=== PATIENT | male | born 1950 | race Caucasian/White ===

== ENCOUNTER 2021-07-18 12:15 | Outpatient (CLI) | payer OTHER, SELFPAY ==
[2021-07-18 12:53] LABS: CRP 0.7 mg/dL (<1.0)
[2021-07-18 13:56] LABS: Erythrocyte Sedimentation Rate 18 mm/hr (0-20)
== END 2021-07-18 12:16 | disposition home or self-care (01) ==
LOC: ANHLAB 12:20
PROVIDERS: PCP Internal Medicine; Visit Provider Orthopaedic Surgery
DX: Z96.651 Presence of right artificial knee joint (principal)
CPT/HCPCS: 36415; 85652; 86140

== ENCOUNTER 2021-07-18 12:35 | Outpatient (NON) | payer OTHER, SELFPAY ==
[2021-07-18 13:47] LABS: Color Synovial Fluid Yellow (Colorless); Crystals Synovial Fluid None Seen (None Seen); Source Synovial Fluid Synovial fluid
[2021-07-18 13:48] LABS: Appearance Synovial Fluid Hazy (Clear); Nucleated Cell Synovial Fluid 2992 /uL (0-200); RBC Synovial Fluid 165 /uL (0-0)
[2021-07-18 13:52] LABS: Lymphocytes Synovial Fluid 55 %; Neutrophils Synovial Fluid 45 % (0-25)
== END 2021-07-18 12:36 | disposition home or self-care (01) ==
LOC: HOME HLTH 12:37
PROVIDERS: PCP Internal Medicine; Visit Provider Orthopaedic Surgery
DX: Z96.651 Presence of right artificial knee joint (principal)
CPT/HCPCS: 36415; 85652; 86140; 87070; 87075; 87205; 89051; 89060

== ENCOUNTER 2021-08-21 01:02 | Day surgery (SDC) | payer OTHER, SELFPAY ==
[2021-08-07 14:07] VITALS: BMI 39.4
[2021-08-21 07:09] VITALS: BP 129/76; PULSE 88; RESP 17; TEMP 35.9; O2SAT 96; BMI 38.6
[2021-08-21] MEDS: LACTATED RINGERS 1,000 ML 150 ML IV CONT (07:21)
[2021-08-21 07:22] LABS: Glucose Point of Care 163 mg/dl (65-105)
--- NOTE | 2021-08-21 07:24 | WPDANESEPPF ---
Anes - Initial Pre Proc Eval Procedure: Operation Date: 08/21/21 08:30 Proposed Procedures p Screening Colonoscopy - Jordan Chan MD Date/Time: 08/21/21 07:24 Surgeon: Jordan Chan MD Pre Op Diagnosis: hx of colon polyps Patient Data Age: 71 Gender: M Height: 1.91 m Weight: 140.1 kg Last Vital Signs Temp 35.9 C L 08/21/21 07:09 Pulse 88 08/21/21 07:09 Resp 17 08/21/21 07:09 BP 129/76 08/21/21 07:09 Pulse Ox 96 08/21/21 07:09 Allergies Allergy/AdvReac Type Severity Reaction Status Date / Time No Known Allergies Allergy Verified 08/21/21 07:07 Home Medications Medication Instructions Recorded Confirmed Type lancets 23 gauge #25 each 04/06/19 08/21/21 History sildenafil 100 mg tablet 100 mg PO DAILY PRN 04/06/19 08/21/21 History triamcinolone acetonide 0.1 % 1 applic TOPICAL BID 04/06/19 08/21/21 History topical cream albuterol sulfate 90 mcg/actuation 1 puff INHALATION Q4H PRN #18 gm 12/18/19 08/21/21 Rx aerosol inhaler amlodipine 10 mg tablet 10 mg PO DAILY #90 tablet 10/10/20 08/21/21 Rx lisinopril 20 mg tablet 20 mg PO DAILY #90 tablet 01/23/21 08/21/21 Rx lovastatin 20 mg tablet 20 mg PO DAILY #90 tablet 02/07/21 08/21/21 Rx montelukast 10 mg tablet 10 mg PO DAILY #90 tablet 02/07/21 08/21/21 Rx meloxicam 15 mg tablet 15 mg PO DAILY #90 tablet 04/05/21 08/21/21 Rx citalopram 40 mg tablet 20 mg PO DAILY #90 tablet 05/01/21 08/21/21 Rx metformin 1,000 mg tablet 1,000 mg PO BID #180 tablet 05/13/21 08/21/21 Rx fluticasone 250 mcg-salmeterol 50 1 inh INHALATION BID #180 each 05/30/21 08/21/21 Rx mcg/dose blistr powdr for inhalation allopurinol 100 mg tablet 200 mg PO BID #180 tablet 06/25/21 08/21/21 Rx blood sugar diagnostic #100 ea 08/19/21 08/21/21 Rx Laboratory Tests 08/21/21 07:13 POC Capillary Glucose 163 mg/dl H mg/dl (65-105) Patient hx anesthesia problems: none Family hx anesthesia problems: none Results Review: All pre-operative results and documents have been reviewed as part of the pre-operative evaluation. [facility] Past Medical History Medical History (Updated 08/21/21 @ 07:26 by Anatoly Frost MD) COPD (chronic obstructive pulmonary disease) Diabetes Essential (primary) hypertension Hyperlipidemia LDL goal <100 Mild intermittent asthma, uncomplicated Obstructive sleep apnea (adult) (pediatric) Prostate cancer screening Type 2 diabetes mellitus without complication, without long-term current use of insulin Family History Family History Other Family history of arthritis Family history of gout Family history of malignant neoplasm Hypertension Social History Social History Smoking packs per day: 1 Smoking cigarettes per day: 20.0 Smoking status: Former smoker Tobacco type: cigarettes Second hand tobacco smoke exposure: No Smoking end date: 04/26/99 Alcohol intake: current Drinks per week: 1 Alcohol use details: beer, Substance use: never Substance use type: does not use Living arrangements: with family Spiritual care concerns: No Anes - Eval Final PreProcedure Day of Procedure 08/21/21 07:24 Patient weight: obese Heart: regular rate and rhythm Lungs: clear to auscultation and normal air movement Airway: Mallampati scale class II Neurological: alert and oriented Last oral intake: >/= 8 hours ASA classification: III Emergent: no Anesthetic plan: proceed Anesthesia type and monitoring: general GIVS Results Review: All pre-operative results and documents have been reviewed as part of the pre-operative evaluation. Informed Consent: The patient's anesthetic plan and its attendant risks and benefits were discussed with the patient/family/POA. Questions were solicited and answers provided to the satisfaction of the patient/family/POA.
--- NOTE | 2021-08-21 07:29 | PM.HPGS ---
History of Present Illness History of Present Illness Consent: Risks, benefits, and alternatives have been discussed and questions answered. Patient agrees to proceed with procedure. Chief complaint: hx of colon polyps Narrative: Edgar Lockhart is a 71 year old male Referred for colon cancer screening. He has history of polyps, having had 3 polyps removed about 5 years ago. Review of Systems Review of Systems: All systems reviewed & are unremarkable except as noted in HPI and below PMFSH Past Medical History Medical History COPD (chronic obstructive pulmonary disease) Diabetes Essential (primary) hypertension Hyperlipidemia LDL goal <100 Mild intermittent asthma, uncomplicated Obstructive sleep apnea (adult) (pediatric) Prostate cancer screening Type 2 diabetes mellitus without complication, without long-term current use of insulin Family History Family History Other Family history of arthritis Family history of gout Family history of malignant neoplasm Hypertension Social History Social History Smoking packs per day: 1 Smoking cigarettes per day: 20.0 Smoking status: Former smoker Tobacco type: cigarettes Second hand tobacco smoke exposure: No Smoking end date: 04/26/99 Alcohol intake: current Drinks per week: 1 Alcohol use details: beer, Substance use: never Substance use type: does not use Living arrangements: with family Spiritual care concerns: No Meds Home Medications and Allergies Home Medications Medication Instructions Recorded Confirmed Type lancets 23 gauge #25 each 04/06/19 08/21/21 History sildenafil 100 mg tablet 100 mg PO DAILY PRN 04/06/19 08/21/21 History triamcinolone acetonide 0.1 % 1 applic TOPICAL BID 04/06/19 08/21/21 History topical cream albuterol sulfate 90 mcg/actuation 1 puff INHALATION Q4H PRN #18 gm 12/18/19 08/21/21 Rx aerosol inhaler amlodipine 10 mg tablet 10 mg PO DAILY #90 tablet 10/10/20 08/21/21 Rx lisinopril 20 mg tablet 20 mg PO DAILY #90 tablet 01/23/21 08/21/21 Rx lovastatin 20 mg tablet 20 mg PO DAILY #90 tablet 02/07/21 08/21/21 Rx montelukast 10 mg tablet 10 mg PO DAILY #90 tablet 02/07/21 08/21/21 Rx meloxicam 15 mg tablet 15 mg PO DAILY #90 tablet 04/05/21 08/21/21 Rx citalopram 40 mg tablet 20 mg PO DAILY #90 tablet 05/01/21 08/21/21 Rx metformin 1,000 mg tablet 1,000 mg PO BID #180 tablet 05/13/21 08/21/21 Rx fluticasone 250 mcg-salmeterol 50 1 inh INHALATION BID #180 each 05/30/21 08/21/21 Rx mcg/dose blistr powdr for inhalation allopurinol 100 mg tablet 200 mg PO BID #180 tablet 06/25/21 08/21/21 Rx blood sugar diagnostic #100 ea 08/19/21 08/21/21 Rx Allergies Allergy/AdvReac Type Severity Reaction Status Date / Time No Known Allergies Allergy Verified 08/21/21 07:07 Vital Signs Vital Signs - 24 hr 08/21/21 07:09 Temperature 35.9 C L Pulse Rate 88 Respiratory Rate 17 Blood Pressure 129/76 Pulse Oximetry 96 Exam Resp: Auscultation: clear to auscultation bilaterally Cardio: Rate: regular rate Rhythm: regular rhythm GI: GI Palp: Yes Soft to palpation and No Tenderness to palpation present (GI) Assessment and Plan Assessment and plan (1) Colon cancer screening: Code(s): Z12.11 - Encounter for screening for malignant neoplasm of colon Status: Acute Assessment and Plan: Colonoscopy with possible biopsy or polypectomy or cautery or injection of substances.
[2021-08-21 08:46] VITALS: BP 90/62; PULSE 78; RESP 15; O2SAT 93
[2021-08-21 08:56] VITALS: BP 108/70; PULSE 74; RESP 16; O2SAT 96
[2021-08-21 09:06] VITALS: BP 110/76; PULSE 66; RESP 17; O2SAT 97
== END 2021-08-21 09:14 | disposition home or self-care (01) ==
PROVIDERS: PCP Family Medicine; Visit Provider Internal Medicine Gastroenterology
PROC: 0DJD8ZZ Inspection of Lower Intestinal Tract, Via Natural or Artificial Opening Endoscopic (ICD-10-PCS; CPT 45378; principal; 2021-08-21 08:30)
DX: Z12.11 Encounter for screening for malignant neoplasm of colon (principal); D12.3 Benign neoplasm of transverse colon; K63.5 Polyp of colon; K57.30 Diverticulosis of large intestine without perforation or abscess without bleeding; J44.9 Chronic obstructive pulmonary disease, unspecified; E11.9 Type 2 diabetes mellitus without complications; I10 Essential (primary) hypertension; E78.5 Hyperlipidemia, unspecified; J45.20 Mild intermittent asthma, uncomplicated; G47.33 Obstructive sleep apnea (adult) (pediatric); Z87.891 Personal history of nicotine dependence; Z79.51 Long term (current) use of inhaled steroids; Z79.84 Long term (current) use of oral hypoglycemic drugs; E66.9 Obesity, unspecified; Z68.38 Body mass index [BMI] 38.0-38.9, adult
CPT/HCPCS: 45380; 82948; 88305; J2704; J7120

== ENCOUNTER 2022-10-20 09:46 | Outpatient (CLI) | payer OTHER, SELFPAY ==
[2022-10-20 16:59] LABS: Basophils Absolute Auto 0.1 K/mm3 (0.0-0.1); Basophils Percent Auto 0.6 % (0.2-1.2); Eosinophils Absolute Auto 0.1 K/mm3 (0-0.3); Eosinophils Percent Auto 1.1 % (0-4.4); Hematocrit 41.1 % (42.0-52.0); Hemoglobin 13.3 g/dL (14.0-18.0); Immature Granulocyte Absolute 0.08 K/mm3 (0.00-0.031); Immature Granulocyte Percent A 0.7 % (0-0.5); Lymphocytes Absolute Auto 0.86 K/mm3 (0.9-3.2); Lymphocytes Percent Auto 7.9 % (18.3-44.2); Mean Corpuscular HGB Conc 32.4 g/dl (32-36); Mean Corpuscular Hemoglobin 30.2 pg (26-34); Mean Corpuscular Volume 93.2 fl (80-100); Mean Platelet Volume 9.2 fl (7.4-10.4); Monocytes Percent Auto 8.8 % (2.6-8.5); Neutrophils Absolute Auto 8.8 K/mm3 (1.3-6.7); Neutrophils Percent Auto 80.9 % (45.5-73.1); Platelet Count Result 361 k/mm3 (150-375); Red Blood Count 4.41 M/mm3 (4.6-6.20); Red Cell Distribution Width 15.3 % (11.5-14.5); White Blood Count 10.9 K/mm3 (4.5-10.0)
[2022-10-20 17:21] LABS: Creatinine Urine 276.9 mg/dL
[2022-10-20 17:23] LABS: MALB Creatinine Ratio 16.7 mg/g (0-30); Microalbumin Urine Random 46.2 mg/L (0-16.7)
[2022-10-20 17:35] LABS: D Dimer < 0.27 ug/mL (<0.48)
[2022-10-20 18:17] LABS: Prostate Specific Antigen < 0.1 ng/mL (< OR = 4.0)
[2022-10-20 18:49] LABS: Alanine Aminotransferase 31 U/L (6-50); Albumin Level 4.5 g/dL (3.5-5.1); Alkaline Phosphatase 101 U/L (38-126); Anion Gap 6 mmol/L (8-16); Aspartate Amino Transferase 31 U/L (17-59); Bilirubin,Total 0.6 mg/dL (0.2-1.3); Blood Urea Nitrogen 25 mg/dL (9-20); Carbon Dioxide 26 mmol/L (22-30); Chloride 107 mmol/L (98-107); Cholesterol 191 mg/dL (0-200); Estimated Glomerular Filt Rate 54; Glucose 105 mg/dL (65-110); HDL Direct 35 mg/dL; Potassium 4.7 mmol/L (3.4-5.0); Sodium 139 mmol/L (137-145); Triglycerides 277 mg/dL (<150)
[2022-10-20 19:00] LABS: LDL Cholesterol Direct 102 mg/dL
[2022-10-20 20:43] LABS: Hemoglobin A1C 6.1 % (<5.7)
== END 2022-10-20 09:47 | disposition home or self-care (01) ==
LOC: ANHGOSHLAB 09:47
PROVIDERS: Internal Medicine; PCP Family Medicine; Visit Provider Family Medicine
DX: Z12.5 Encounter for screening for malignant neoplasm of prostate (principal); J44.9 Chronic obstructive pulmonary disease, unspecified; Z13.220 Encounter for screening for lipoid disorders; R06.02 Shortness of breath; Z13.228 Encounter for screening for other metabolic disorders; E11.9 Type 2 diabetes mellitus without complications; R53.83 Other fatigue
CPT/HCPCS: 36415; 80053; 80061; 82043; 83036; 84153; 85025; 85380; G0103

== ENCOUNTER → 2022-10-20 10:07 | Outpatient (CLI) | payer OTHER, SELFPAY ==
--- NOTE | ~2022-10-20 | XR_ITS ---
Clinical Indication: Shortness of breath PA and lateral views of the chest: Comparison: 12/31/2006 Findings: The lungs are clear, without evidence of focal consolidation or pleural effusion. Cardiome diastinal silhouette is within normal limits. Calcified right hilar lymph nodes are present. Eventrat ion of the right hemidiaphragm noted. Bones and soft tissues are unremarkable. Impression: Clear lungs. No acute abnormality seen. Reviewed, dictated and finalized at location M. Impression: Clear lungs. No acute abnormality seen.
== END ==
PROVIDERS: PCP Family Medicine; Visit Provider Family Medicine
DX: J39.8 Other specified diseases of upper respiratory tract (principal); J44.9 Chronic obstructive pulmonary disease, unspecified
CPT/HCPCS: 71046

== ENCOUNTER 2022-11-21 07:45 | Outpatient (CLI) | payer OTHER, SELFPAY ==
--- NOTE | 2022-11-21 08:04 | ECHO_ITS ---
Patient Info Name: Edgar Lockhart Age: 72 years : 1950 Gender: Male Ht: 72 in Wt: 320 lbs BSA: 2.78 m2 HR: 73 bpm Heart Rhythm: Sinus Rhythm Technical Quality: Good Exam Date: 11/21/2022 8:17 AM Exam Location: [facility] Patient Status: Outpatient Admit Date: 11/21/2022 Staff Ordering Physician: Reuben Simpson DO Grocery Caddy: Nino Platt RDCS Attending Provider: Reuben Simpson DO Referring Physician: Calvin INIGUEZ; Exam Type: CA echo doppler color flow Study Info Indications - other forms of dyspnea Complete two-dimensional, color flow and Doppler transthoracic echocardiogram is performed. Summary 1. Complete two-dimensional, color flow and Doppler transthoracic echocardiogram is performed. 2. Left ventricular chamber dimension is mildly enlarged. 3. There is mild concentric increased left ventricular wall thickness. 4. Left ventricular systolic function is normal, estimated at 60-65%. 5. The left ventricular diastolic function is abnormal. 6. E/e' 15 is elevated. 7. There is mild aortic valve sclerosis. 8. There is mild tricuspid valve regurgitation. 9. No pulmonary hypertension, estimated pulmonary arterial systolic pressure is 30 mmHg. Left Ventricle E/e' 15 is elevated. Left ventricular chamber dimension is mildly enlarged. Left ventricular systolic function is normal, estimated at 60-65%. There is mild concentric increased left ventricular wall thickness. The left ventricular diastolic function is abnormal. Right Ventricle Right ventricular systolic function is normal and with normal TAPSE 1.7 cm. Right ventricular chamber dimension is normal. Left Atria Left atrial chamber dimension is normal. Right Atria Right atrial chamber dimension is normal. Aortic Valve The aortic valve is trileaflet. There is mild aortic valve sclerosis. There is no aortic valve stenosis. There is no aortic valve regurgitation. Pulmonic Valve There is no pulmonic regurgitation. Mitral Valve There is no mitral valve stenosis. There is no mitral valve regurgitation. Tricuspid Valve There is mild tricuspid valve regurgitation. No pulmonary hypertension, estimated pulmonary arterial systolic pressure is 30 mmHg. Pericardium/Pleural There is no pericardial effusion. Inferior Vena Cava Normal inferior vena cava with >50% collapse upon inspiration consistent with normal right atrial pressure, 5 mmHg. Aorta The aortic root size at the sinus of Valsalva is normal. Left Ventricular Outflow Tract Name Value Normal LVOT 2D LVOT Diameter 2.2 cm LVOT Doppler LVOT Peak Gradient 6 mmHg LVOT Mean Gradient 4 mmHg LVOT VTI 24 cm LVOT VTI/AV VTI Ratio 0.7 LVOT Stroke Volume 92 ml LVOT CO 6.8 l/min LVOT CI 2.4 l/min/m2 Pulmonic Valve Name Value Normal RVOT Doppler
--- NOTE | 2022-11-21 08:28 | ECG_ITS ---
Measurements Intervals Wheeler Rate: 71 P: 48 CO: 189 QRS: 96 QRSD: 109 T: 60 QT: 396 QTc: 431 Interpretive Statements SINUS RHYTHM BASELINE ARTIFACT- I, II, III, AVR, AVL, AVF, V1-V6 NORMAL ECG NO PREVIOUS ECG AVAILABLE FOR COMPARISON Electronically Signed On 11-21-2022 8:53:42 CDT by Shayan Wells D.O.
== END 2022-11-21 07:46 | disposition home or self-care (01) ==
LOC: ANHCARD 07:46
PROVIDERS: PCP Family Medicine; Visit Provider Family Medicine
DX: R06.00 Dyspnea, unspecified (principal); R06.09 Other forms of dyspnea
CPT/HCPCS: 93005; 93306

== ENCOUNTER 2023-12-27 10:49 | Emergency (ER) | payer OTHER, SELFPAY ==
--- NOTE | 2023-12-27 11:02 | ED.ABDPAIN ---
HPI - Abdominal Pain General Chief Complaint: Abdominal Pain Stated Complaint: lower belly/ crotch pain Time Seen by Provider: 12/27/23 11:02 Source: patient, RN notes reviewed and old records reviewed Mode of arrival: ambulatory Limitations: no limitations History of Present Illness HPI narrative: Patient presents with complaints of intermittent abdominal discomfort for 2-3 weeks. He reports pain is worse when he is getting up from lying down, he has also noticed a bulge in the umbilical area when he goes from lying to sitting. Reports bulge goes away when standing up. He denies any injury or trauma. He denies fever, chills, sweats. He denies any change in bowel pattern. He denies any fever, chills, sweats. No nausea or vomiting. Related Data Home Medications Medication Instructions Recorded Confirmed lancets 23 gauge #25 ea 04/06/19 06/21/23 triamcinolone acetonide 0.1 % 1 applic topical BID 04/06/19 06/21/23 topical cream Allergies Allergy/AdvReac Type Severity Reaction Status Date / Time No Known Allergies Allergy Verified 12/27/23 11:04 Review of Systems Review of Systems: All systems reviewed & are unremarkable except as noted in HPI and below Constitutional: Constitutional: Reports no additional constitutional complaints ENT: Reports system reviewed and no additional complaints, except as documented Cardiovascular: Cardiovascular: Reports no additional cardiovascular complaints Respiratory: Respiratory: Reports no additional respiratory complaints Gastrointestinal: Gastrointestinal: Reports as per HPI, Reports no additional gastrointestinal complaints, Denies melena, Denies bloating, Denies change in stool character, Denies constipation, Denies GI cramping and Reports other (Abdominal discomfort when going from sitting to standing, umbilical bulge) Genitourinary: Genitourinary: Reports no additional male genitourinary complaints, Reports as per HPI and Denies dysuria PMF Past Medical History Medical History COPD (chronic obstructive pulmonary disease) Diabetes Essential (primary) hypertension Hyperlipidemia LDL goal <100 Mild intermittent asthma, uncomplicated Obstructive sleep apnea (adult) (pediatric) Prostate cancer screening Type 2 diabetes mellitus without complication, without long-term current use of insulin Surgical History Surgical History History of total left knee replacement (TKR) (04/13/23) Family History Family History Other Family history of arthritis Family history of gout Family history of malignant neoplasm Hypertension Social History Social History Smoking packs per day: 1 Smoking cigarettes per day: 20.0 Smoking status: Former smoker Tobacco type: cigarettes Second hand tobacco smoke exposure: No Smoking end date: 04/26/99 Alcohol intake: current Drinks per week: 1 Alcohol use details: beer, Substance use: never Substance use type: does not use Lack of Transportation: No Lack of Food: Never True Current Housing: I Have Housing Concerned About Future Housing: No Difficulty Paying Gas/Electric Bills: No Difficulty Paying for Meds: No Currently Unemployed: No Education: Associate Degree Difficulty w/ Childcare or Family Care: No Living arrangements: with family Spiritual care concerns: No Comments At the time of my signature, I reviewed and agree with the nursing past medical, surgical, social, and family history. There is no relevant family history pertinent to the patient complaint. Exam Const: General: cooperative, no acute distress, alert and awake Orientation/consciousness: oriented to person, oriented to place and oriented to time HENMT: Head: normal to inspection Resp: Effort &
== END 2023-12-27 11:22 | disposition home or self-care (01) ==
PROVIDERS: Emergency Provider Nurse Practitioner Family; PCP Family Medicine
DX: K42.9 Umbilical hernia without obstruction or gangrene (principal); Z87.891 Personal history of nicotine dependence; J44.9 Chronic obstructive pulmonary disease, unspecified; E11.9 Type 2 diabetes mellitus without complications; I10 Essential (primary) hypertension; E78.5 Hyperlipidemia, unspecified
CPT/HCPCS: 99211; G0463

== ENCOUNTER 2024-01-12 09:56 | Outpatient (CLI) | payer OTHER, SELFPAY ==
--- NOTE | ~2024-01-12 | CT_ITS ---
EXAMINATION: CT abdomen pelvis w con DATE: 01/12/2024 10:30 INDICATION: Unspecified abdominal pain. TECHNIQUE: Computed tomography (CT) of the abdomen and pelvis was performed with 100 mL Omnipaque 350 intravenous contrast. Automated exposure control and iterative reconstruction technique were employe d. The dose-length product was 2047.00 mGy-cm. COMPARISON: Chest 2 views 10/20/22 FINDINGS: The lungs demonstrate mild atelectasis. There is chronic elevation of right hemidiaphragm. No pleural effusion. Calcified right hilar mediastinal lymph nodes are consistent with old granulomat ous disease. The heart size is normal. There are coronary artery calcifications. No pericardial effus ion. Calcifications in the liver and spleen are consistent with old granulomatous disease. There are gallstones in the gallbladder, which is normal in size. The pancreas and left adrenal gland are vanessa l. There is a 2.4 cm mass in right adrenal gland measuring soft tissue attenuation. Right kidney is n ormal. There are 2 stones in left kidney measuring up to 9 mm. There are brachytherapy seeds in the p rostate. The prostate is mildly enlarged. There is diverticulosis of the colon without evidence of di verticulitis. The appendix is normal. There are no dilated loops of bowel. There are no pathologicall y enlarged lymph nodes. There is no free intraperitoneal fluid. There is thoracolumbar dextroscoliosi s and severe spondylosis. IMPRESSION: 1. Cholelithiasis. 2. Nonobstructing left kidney stones. 3. 2.4 cm right adrenal mass. In the absence of known malignancy other than prostate cancer, this fin ding is likely an adenoma. Reviewed, dictated and finalized at location A. IMPRESSION: 1. Cholelithiasis. 2. Nonobstructing left kidney stones. 3. 2.4 cm right adrenal mass. In the absence of known malignancy other than pro state cancer, this finding is likely an adenoma.
[2024-01-12 10:23] LABS: Estimated Glomerular Filt Rate 50
== END 2024-01-12 09:57 | disposition home or self-care (01) ==
PROVIDERS: PCP Family Medicine; Visit Provider Family Medicine
DX: K80.20 Calculus of gallbladder without cholecystitis without obstruction (principal); N20.0 Calculus of kidney; D35.01 Benign neoplasm of right adrenal gland
CPT/HCPCS: 74177; Q9967

== ENCOUNTER 2025-03-13 11:33 | Outpatient (CLI) | payer OTHER, SELFPAY ==
[2025-03-13 13:21] LABS: Anion Gap 8 mmol/L (4-12); Blood Urea Nitrogen 19 mg/dL (9-20); Calcium 10.1 mg/dL (8.4-10.2); Carbon Dioxide 26 mmol/L (22-30); Chloride 107 mmol/L (98-107); Estimated Glomerular Filt Rate > 60; Glucose 107 mg/dL (65-110); Potassium 4.5 mmol/L (3.4-5.0); Sodium 141 mmol/L (137-145)
[2025-03-13 17:06] LABS: Hemoglobin A1C 6.2 % (<5.7)
== END 2025-03-13 11:34 | disposition home or self-care (01) ==
LOC: ANHGOSHLAB 11:34
PROVIDERS: PCP Internal Medicine; Visit Provider Internal Medicine
DX: E11.9 Type 2 diabetes mellitus without complications (principal); I10 Essential (primary) hypertension
CPT/HCPCS: 36415; 80048; 83036